=== PATIENT | female | born 1990 | race African-American/Black ===

== ENCOUNTER 2018-05-24 18:26 | Emergency (ER) | payer MEDICAID ==
[~2018-05-24] VITALS: Ht 165.1 cm; Wt 54.0 kg
[~2018-05-24 18:26] MED LIST: FERR-43 PO; OCD PO; PREN-88 PO
[2018-05-24 18:57] VITALS: BP 111/70
== END 2018-05-25 00:45 | disposition left against medical advice (07) ==
LOC: ER 18:26
DX: Z53.21 Procedure and treatment not carried out due to patient leaving prior to being seen by health care provider (principal)